=== PATIENT | male | born 1995 ===

== ENCOUNTER 2016-05-08 09:51 | Emergency (ER) | payer OTHER ==
[2016-05-08 10:07] VITALS: BP 117/75
[2016-05-08] MEDS ORDERED: Ibuprofen TAB* 600 MG PO ONE (10:38)
--- NOTE | 2016-05-08 10:42 | UC ---
FLU HPI - HPI Summary HPI Summary: 21 year old male with complaints of headache, sore throat, cough, high fever, body aches, nausea sudden on set 3 days ago. Pt states woke with fever 103 this am. Temp comes down with DayQuil Denies chest pain or productive cough or difficulty breathing - History of Current Complaint Chief Complaint: UCGeneralIllness Stated Complaint: FEVER Time Seen by Provider: 05/08/16 10:25 Hx Obtained From: Patient Onset/Duration: Sudden Onset, Lasting Days - 3, Still Present Severity Currently: Moderate Severity Initially: Moderate Associated Signs & Symptoms: Positive: Fever, T Max - 103, Myalgia, Cough, Sore Throat, Headache. Negative: Nasal Congestion, Vomiting, Diarrhea - Risk Factors Influenza Risk Factors: Negative - Allergy/Home Medications Allergies/Adverse Reactions: Allergies Allergy/AdvReac Type Severity Reaction Status Date / Time No Known Allergies Allergy Verified 08/02/14 09:07 PMH/Surg Hx/FS Hx/Imm Hx Previously Healthy: Yes Endocrine History Of: Denies: Diabetes, Thyroid Disease, Hyperthyroidism, Hypothyroidism Cardiovascular History Of: Denies: Cardiac Disorders, Hypertension, Pacemaker/ICD Respiratory History Of: Reports: Asthma - as a child Denies: COPD GI/ History Of: Denies: Ulcer Neurological History Of: Denies: TIA, Seizures Psychological History Of: Denies: Anxiety, Depression - Surgical History Surgical History: Yes Surgery Procedure, Year, and Place: FX BILAT ARMS - Family History Known Family History: Negative: Hypertension, Diabetes - Social History Occupation: Student Lives: With Family Alcohol Use: Rare Substance Use Type: None Smoking Status (MU): Current Some Day Smoker - Immunization History Vaccination Up to Date: Yes Review of Systems Constitutional: Fever, Chills Skin: Negative Eyes: Negative ENT: Sore Throat Respiratory: Negative Cardiovascular: Negative Gastrointestinal: Negative Genitourinary: Negative Motor: Negative Neurovascular: Negative Musculoskeletal: Myalgia Neurological: Headache Psychological: Negative All Other Systems Reviewed And Are Negative: Yes Physical Exam Triage Information Reviewed: Yes Appearance: No Pain Distress, Well-Nourished, Ill-Appearing - mildly Vital Signs: Initial Vital Signs Temp 98.3 F 05/08/16 10:00 Pulse 93 05/08/16 10:00 Resp 18 05/08/16 10:00 BP 117/75 05/08/16 10:00 Pulse Ox 99 05/08/16 10:00 Vital Signs Reviewed: Yes Eyes: Positive: Conjunctiva Clear. Negative: Discharge ENT: Positive: Hearing grossly normal, Pharyngeal erythema, TMs normal, Tonsillar swelling - 2+, Tonsillar exudate - right side. Negative: Nasal congestion, Nasal drainage Neck: Positive: Supple, Nontender Respiratory: Positive: Lungs clear, Normal breath sounds, Other: - no cough noted. Negative: Crackles, Wheezing Cardiovascular: Positive: RRR, No Murmur Musculoskeletal: Positive: Strength Intact, ROM Intact, No Edema Neurological: Positive: Alert, Muscle Tone Normal Psychological: Positive: Normal Response To Family - with father, Age Appropriate Behavior - cooperative and pleasant for exam Skin: Negative: rashes, breakdown Flu Course/Dx - Course Course Of Treatment: rapid strep - negative. rapid influenza - negative. ibuprofen. Education about mono. follow up plan established - Differential Dx/Diagnosis Differential Diagnosis/HQI/PQRI: Influenza, Other - Strep throat Provider Diagnoses: Viral illness Discharge - Discharge Plan Condition: Stable Disposition: HOME Patient Education Materials: Influenza (ED) Referrals: Andrei Horton MD [Primary Care Provider] - Additional Instructions: Take Tylenol 650mg - 1000 mg every 6 - 8 hours as needed for pain or fever Take Ibuprofen 600mg every 6 hour as needed for pain or fever
== END 2016-05-08 11:25 | disposition home or self-care (01) ==
LOC: UCEAST 09:51
DX: B34.9 Viral infection, unspecified (principal); F17.200 Nicotine dependence, unspecified, uncomplicated
CPT/HCPCS: 87502; 87651; 99211; A9270-GY; G0463